=== PATIENT | male | born 1975 | race Caucasian/White ===

== ENCOUNTER → 2022-02-12 | Day surgery (SDC) | payer MEDICARE, OTHER ==
[~2022-02-12] MED LIST: CYCLOBENZAPRINE10 MG PO; ELAVIL 50 MG TA50 MG PO; FENOFIBRATE160 MG PO; HYDROCODON-ACE1 EAC4 PO; LEVOTHYROXINE125 MC1 PO; METFORMIN HCL1000 M1 PO; OMEPRAZOLE40 MG PO; PRAVASTATIN SOD40 MG PO; SEROQUEL XR300 MG PO; ZESTORETIC 20-1 EAC1 PO; ZOLOFT100 MG PO
== END | disposition home or self-care (01) ==
LOC: OR 08:59
PROVIDERS: Pain Medicine Interventional Pain Medicine
PROC: 3E0S33Z Introduction of Anti-inflammatory into Epidural Space, Percutaneous Approach (ICD-10-PCS; 2022-02-12)
PROC: 3E0S3BZ Introduction of Anesthetic Agent into Epidural Space, Percutaneous Approach (ICD-10-PCS; principal; 2022-02-12 10:20)
DX: G89.4 Chronic pain syndrome (principal); M47.26 Other spondylosis with radiculopathy, lumbar region; M51.16 Intervertebral disc disorders with radiculopathy, lumbar region; E66.01 Morbid (severe) obesity due to excess calories; Z68.41 Body mass index [BMI] 40.0-44.9, adult; Z79.84 Long term (current) use of oral hypoglycemic drugs; Z79.890 Hormone replacement therapy; Z79.899 Other long term (current) drug therapy
CPT/HCPCS: 76000; 82962; J1040; Q9967